=== PATIENT | female | born 1990 | race Caucasian/White ===

== ENCOUNTER 2016-09-08 21:44 | Emergency (ER) | payer MEDICAID, OTHER ==
[~2016-09-08] VITALS: Ht 165.1 cm; Wt 71.0 kg
[2016-09-08 21:48] VITALS: Ht 165.1 cm; Wt 71.0 kg
[2016-09-08] MEDS ORDERED: KETOROLAC 30 MG INJ IV STA (22:03)
--- NOTE | 2016-09-08 22:06 | ERD ---
ER Documentation Chief Complaint Date/Time DATE: 09/08/16 TIME: 22:05 Chief Complaint sore throat x 2 days HPI 25-year-old female comes in with sore throat for the past 2 days. She states she has had tactile fevers. No cough, no vomiting, diarrhea. She denies any trouble swallowing or handling his own secretions. ROS All systems reviewed and are negative except as per history of present illness. Medications Home Meds Active Scripts Ibuprofen* (Motrin*) 600 Mg Tab, 600 MG PO Q6, #30 TAB Prov:CORY PETERS PA-C 09/08/16 Prednisone* (Prednisone*) 20 Mg Tab, 40 MG PO DAILY for 4 Days, TAB Prov:CORY PETERS PA-C 09/08/16 Clindamycin Hcl* (Clindamycin Hcl*) 300 Mg Capsule, 300 MG PO TID for 10 Days, CAP Prov:CORY PETERS PA-C 09/08/16 Allergies Allergies: Coded Allergies: No Known Allergy (Unverified , 09/08/16) Physical Exam Vitals Vital Signs Date Time Temp Pulse Resp B/P Pulse Ox O2 Delivery O2 Flow Rate FiO2 09/08/16 21:48 98.5 84 20 123/75 100 Physical Exam General: Well-developed, well-nourished. The patient appears in no acute distress. HEENT: Head is normocephalic, atraumatic. No scleral icterus. Bilateral tonsils are swollen, there is exudate, uvula midline. Palpation shows some induration, no fluctuance. Neck: Supple. Nontender. Positive lymphadenopathy. Lungs: Clear to auscultation. Normal air movement. Heart: Regular rate and rhythm. S1 and S2 are normal. No murmurs, gallops, or rubs. Abdomen: Soft, nontender, nondistended. Bowel sounds are normoactive. Extremities: No clubbing or cyanosis. Normal pulses. Moving extremities x 4. No weakness. Neurologic: Alert and oriented 3. No focal deficits. Skin: Normal turgor. No rash or lesions. Results 24 hrs Current Medications Medications (Trade) Dose Ordered Sig/Bee Route PRN Reason Start Time Stop Time Status Last Admin Dose Admin Clindamycin HCl/ Dextrose (Cleocin 600 Mg/ D5W (Pmx)) 50 ml @ 50 mls/hr ONCE ONCE IVPB 6/14/17 22:30 09/08/16 23:29 DC 09/08/16 22:27 Dexamethasone (Decadron) 10 mg ONCE ONCE IV 09/08/16 22:30 09/08/16 22:31 DC 09/08/16 22:27 Ketorolac Tromethamine (Toradol) 30 mg ONCE STAT IV 09/08/16 22:03 09/08/16 22:05 DC 09/08/16 22:27 Procedures/MDM ED course: Urine was negative. IV line was established, she was given clindamycin 600 mg IV, Toradol 30 mg IV and Decadron 10 mg IV. She was reassessed and states she is feeling much better at this time. MDM: 25-year-old female comes in with tonsillitis, there is exudate, swelling, history of fever and was treated for presumed bacterial infection. There is no evidence of an abscess, I palpated the tonsils and there is some induration however no fluctuance, no discrete abscess, no peritonsillar abscess. There is no trismus and she is handling her secretions well. There is no evidence of any airway obstructive process. She was given antibiotics, Toradol and started on feels much better at this time. I believe the patient can appropriately be discharged on outpatient basis. She should return if she has any worsening symptoms, otherwise follow-up with ENT in the next 1-2 days. Departure Diagnosis: Primary Impression: Tonsillitis Condition: CORY August PA-C Sep 08, 2016 22:06
[2016-09-08] MEDS ORDERED: CLIN-73 PO (22:09)
[2016-09-08] MEDS ORDERED: PRED20TA PO (22:09)
[2016-09-08] MEDS ORDERED: IBUP-1542 PO (22:09)
[2016-09-08] MEDS ORDERED: CLINDAMYCIN 600 MG/D5W (PMX) 50 ML IVPB ONE (22:30)
[2016-09-08] MEDS ORDERED: DEXAMETHASONE 10 MG/ML 1 ML INJ IV ONE (22:30)
[2016-09-08 23:52] VITALS: BP 122/80; PULSE 88; RESP 20; TEMP 98.3
== END 2016-09-08 23:53 | disposition home or self-care (01) ==
LOC: FTE 21:44
DX: J03.90 Acute tonsillitis, unspecified (principal)
CPT/HCPCS: J1100; J1885; Z7610; 96374; 96375